=== PATIENT | male | born 1945 | race Caucasian/White ===

== ENCOUNTER 2017-05-08 10:13 | Emergency (ER) | payer MEDICARE | END 2017-05-08 12:08 | disposition home or self-care (01) | LOC: D.ER 10:13 | DX: S43.401A Unspecified sprain of right shoulder joint, initial encounter (principal); W07.XXXA Fall from chair, initial encounter; Y93.89 Activity, other specified; Y92.019 Unspecified place in single-family (private) house as the place of occurrence of the external cause; E11.9 Type 2 diabetes mellitus without complications; I10 Essential (primary) hypertension; K21.9 Gastro-esophageal reflux disease without esophagitis; M54.2 Cervicalgia ==

== ENCOUNTER → 2017-05-24 08:17 | Outpatient (CLI) | payer MEDICARE | END | disposition home or self-care (01) | LOC: D.MRI 08:17 | DX: S42.031A Displaced fracture of lateral end of right clavicle, initial encounter for closed fracture (principal); X58.XXXA Exposure to other specified factors, initial encounter; Y93.89 Activity, other specified; Y92.89 Other specified places as the place of occurrence of the external cause ==

== ENCOUNTER 2017-09-14 06:29 | Day surgery (SDC) | payer MEDICARE ==
[~2017-09-14] VITALS: Ht 185.4 cm; Wt 90.7 kg
--- NOTE | ~2017-09-14 | OP ---
PATIENT NAME: INEZ MARTINEZ MEDICAL RECORD: [id number] :49 LOCATION:D.OPS ADMISSION DATE: SURGEON: NADIR HUTCHISON MD DATE OF OPERATION: 09/14/2017 PREOPERATIVE DIAGNOSES: 1. Left back sebaceous cyst. 2. Tobacco dependence syndrome. 3. Hypertension. 4. Diabetes mellitus. 5. Hypercholesterolemia. POSTOPERATIVE DIAGNOSES: 1. Left back sebaceous cyst. 2. Tobacco dependence syndrome. 3. Hypertension. 4. Diabetes mellitus. 5. Hypercholesterolemia. PROCEDURE: Excision of 8 cm left back sebaceous cyst. SURGEON: Nadir Hutchison MD REPORT OF PROCEDURE: The patient's back was prepped and draped in sterile fashion. An oblique incision was made overlying an enlarged sebaceous cyst. The incision itself was approximately 5 cm in length. Using electrocautery, we were able to come around the cyst. We eventually were able to completely excise the cyst including its contents. The cyst pocket was penetrated multiple times during this case and the contents were removed. We irrigated out the wound thoroughly with normal saline and treated any bleeding sources with electrocautery. The subcutaneous tissues were reapproximated with interrupted 3-0 Vicryl and the skin was closed with running subcutaneous 5-0 Monocryl. A total of 10 mL of 0.25% Marcaine with epinephrine was infused into the surrounding tissues and the wounds were dressed appropriately. COMPLICATIONS: None. CONDITION: Stable. ANESTHESIA: General endotracheal and local. BLOOD LOSS: Minimal. TRANSINT:[id number] Voice Confirmation ID: [id number] DOCUMENT ID: [id number] NADIR HUTCHISON MD at 1031 CC: JORGE FUENTES MD [id number] DICTATION DATE: 09/14/17 1033 DEVELOPMENT TECHNICIAN: 09/14/17 1440 [facility] 09/14/17 [place] [id number]
[~2017-09-14 06:29] MED LIST: BACLOFEN20 M1 PO; FLOMAX0.4 MG PO; GLUCOPHAGE500 MG PO; MORPHINE SULFAT30 MG PO; MORPHINE SULFAT90 MG PO; NEURONTIN600 MG PO; UROCIT-K10 MEQ PO; ZEGERID 20 MG C1 CAP PO
[2017-09-14 07:04] LABS: BASOPHILS 0.2 % (0-2); EOSINOPHILS 1.3 % (0-7); HEMATOCRIT 41.2 % (42.0-54.0); HEMOGLOBIN 13.8 g/dL (13.5-17.5); IMMATURE GRANULOCYTES 0.1 % (0-5); LYMPHOCYTES 34.1 % (15-50); MCH 31.9 pg (26.0-34.0); MCHC 33.5 g/dL (31.0-37.0); MCV 95.4 fL (80.0-100.0); MEAN PLATELET VOLUME 9.3 fL (7.4-10.4); MONOCYTES 5.6 % (2-11); NEUTROPHILS 58.7 % (40-80); PLATELET COUNT 200 10x3/uL (130-400); RBC 4.32 10x6/uL (4.20-6.10); WBC 8.4 10x3/uL (4.8-10.8)
[2017-09-14 07:23] LABS: CALC OSMOLALITY 284 mosm/kg (275-300); CALCIUM 9.1 mg/dL (8.5-10.1); CHLORIDE - SERUM 102 mmol/L (98-107); CREATININE - SERUM 0.9 mg/dL (0.6-1.3); POTASSIUM - SERUM 4.2 mmol/L (3.5-5.1); SODIUM 139 mmol/L (136-145); UREA NITROGEN 17 mg/dL (7-18); eGFR NON AFRICAN AMERICAN 89 mL/min (90-120)
[2017-09-14 07:28] LABS: GLUCOSE 187 mg/dL (74-106)
[2017-09-14 07:43] VITALS: BP 123/83; Ht 185.4 cm; Wt 90.7 kg
[2017-09-14] MEDS ORDERED: HYDROCODONE-APA1 TAB PO (10:28)
== END 2017-09-14 12:00 | disposition home or self-care (01) ==
LOC: D.OPS 06:29 → D.PAN 10:15 → D.OPS 10:15
PROVIDERS: Surgery
DX: L72.0 Epidermal cyst (principal); F17.200 Nicotine dependence, unspecified, uncomplicated; I10 Essential (primary) hypertension; E11.9 Type 2 diabetes mellitus without complications; E78.00 Pure hypercholesterolemia, unspecified; Z01.812 Encounter for preprocedural laboratory examination

== ENCOUNTER 2019-08-29 15:20 | Emergency (ER) | payer MEDICARE ==
[~2019-08-29] VITALS: Ht 185.4 cm; Wt 77.3 kg
[~2019-08-29 15:20] MED LIST changes: +HYDROCODONE-APA1 TAB PO
[2019-08-29 15:24] VITALS: Ht 185.4 cm; Wt 77.3 kg
[2019-08-29 16:30] LABS: BASOPHILS 0 % (0-2); HEMATOCRIT 40.6 % (42.0-54.0); HEMOGLOBIN 13.2 g/dL (13.5-17.5); IMMATURE GRANULOCYTES 0.1 % (0-5); LYMPHOCYTES 27.6 % (15-50); MCH 31.7 pg (26.0-34.0); MCHC 32.5 g/dL (31.0-37.0); MCV 97.4 fL (80.0-100.0); MEAN PLATELET VOLUME 9.6 fL (7.4-10.4); MONOCYTES 6.8 % (2-11); NEUTROPHILS 64.5 % (40-80); PLATELET COUNT 208 10x3/uL (130-400); RBC 4.17 10x6/uL (4.20-6.10); RDW 14.2 % (11.5-14.5)
[2019-08-29 16:43] LABS: CALC OSMOLALITY 282 mosm/kg (275-300); CALCIUM 9.3 mg/dL (8.5-10.1); CARBON DIOXIDE 31.1 mmol/L (21.0-32.0); CHLORIDE - SERUM 100 mmol/L (98-107); SODIUM 139 mmol/L (136-145); UREA NITROGEN 21 mg/dL (7-18); eGFR NON AFRICAN AMERICAN 78 mL/min (90-120)
[2019-08-29 16:46] LABS: GLUCOSE 126 mg/dL (74-106)
[2019-08-29 16:49] LABS: ALBUMIN 3.9 g/dL (3.4-5.0); ALKALINE PHOSPHATASE 138 U/L (30-120); ALT (SGPT) 18 U/L (10-68); BILIRUBIN - TOTAL 0.55 mg/dL (0.2-1.3); PROTEIN - SERUM 7.3 g/dL (6.4-8.2)
[2019-08-29 17:30] LABS: BILIRUBIN NEGATIVE (NEGATIVE); GLUCOSE NEGATIVE (NEGATIVE); KETONE NEGATIVE (NEGATIVE); NITRITE NEGATIVE (NEGATIVE); UROBILINOGEN NORMAL (NORMAL)
[2019-08-29 18:46] VITALS: BP 153/72
== END 2019-08-29 18:47 | disposition home or self-care (01) ==
LOC: D.ER 15:20
PROVIDERS: Emergency Medicine
DX: R51 Headache (principal); M25.571 Pain in right ankle and joints of right foot; W19.XXXA Unspecified fall, initial encounter; Y93.9 Activity, unspecified; Y92.9 Unspecified place or not applicable; R42 Dizziness and giddiness; E11.9 Type 2 diabetes mellitus without complications; Z79.84 Long term (current) use of oral hypoglycemic drugs

== ENCOUNTER 2020-02-14 14:22 | Inpatient (IN) | payer MEDICARE ==
[~2020-02-14] VITALS: Ht 185.4 cm; Wt 73.0 kg
--- NOTE | ~2020-02-14 | HEMODYNAMI ---
PATIENT:INEZ MARTINEZ MEDICAL RECORD: [id number] : 49 LOCATION:[place] [address] ADMISSION DATE: 02/14/20 Generatedon:02/17/202014:00 Patient name: INEZ MARTINEZ Patient #: [id number] SSN: : 1945 Date of study: 02/17/2020 Page: Of Hemodynamic Procedure Report Patient Data Patient Demographics Procedure consent was obtained First Name: INEZ Gender: Male Last Name: MICHELLE : 1945 Middle Initial: R Age: 74 year(s) Patient #: [id number] Race: Additional ID: [id number] Contact details Address: [address] [place] [address] State: [place] City: [place] Zip code: [address] Past Medical History Allergies Allergen Reaction Date Comments Reported Other allergy 02/17/2020 PCN/ASPIRIN Admission Admission Data Admission Date: 02/14/2020 Admission Time: 18:14 Room #: [facility] Lab Results Lab Result Date: 02/17/2020 Lab Result Time: 0:00 CBC Name Units Result Min Max Hematocrit % 37.5 *-(----)-- 42 54 Hemoglobin g/dl 11.8 *-(----)-- 13.5 17.5 Procedure Procedure Types Cath Procedure Diagnostic Procedure PPM/ICD PPM Dual Implant Sedation Charges Moderate Sedation 25-39 minutes Procedure Description Procedure Date Procedure Date: 02/17/2020 Procedure Start Time: 13:21 Procedure End Time: 13:58 Procedure Staff Name Function Erik Mckay MD Performing Physician Natalie Ruelas RT Monitor Aroldo Spears RN Nurse Zee Davison RT Scrub Paul Graham MD Assisting physician Indication Sick Sinus Syndrome Procedure Data Cath Procedure Fluoroscopy Diagnostic fluoroscopy Total fluoroscopy Time: 2 time: 2 min min Diagnostic fluoroscopy Total fluoroscopy dose: dose: 43.77 mGy 43.77 mGy Estimated blood loss: 10 ml Procedure Complications No complications Procedure Medications Medication Administration Route Dosage 0.9% NaCl I.V. 100 ml/hr Oxygen etCO2 Nasal cannula 2 l/min Lidocaine 1% added to field 20 Vancomycin I.V.P.B 1 g Vancomycin 1 g Irrigation Versed I.V. 2 mg Fentanyl I.V. 100 mcg Versed I.V. 1 mg Fentanyl I.V. 50 mcg Hemodynamics Rest HGB: 11.8 (g/dl) Heart Rate: 63 (bpm) Snapshots Pre Cath Intra NCS Post Cath Vital Signs Time Heart Resp SPO2 NIBP (mmHg) Rhythm Pain Sedation Rate (ipm) (%) Status Level (bpm) 13:04:46 64 16 100 202/86(159) NSR 0 (11) 10(A) , No pain 13:09:14 63 15 99 198/89(116) NSR 0 (11) 10(A) , No pain 13:13:48 63 16 99 184/71(92) NSR 0 (11) 10(A) , No pain 13:18:12 61 17 100 164/77(125) NSR 0 (11) 10(A) , No pain 13:22:30 72 19 100 163/77(124) NSR 0 (11) 10(A) , No pain 13:26:48 59 12 99 171/77(133) NSR 0 (11) 9(A) , No pain 13:31:13 57 12 96 159/69(127) NSR 0 (11) 9(A) , No pain 13:35:31 56 14 98 158/71(138) NSR 0 (11) 9(A) , No pain 13:39:47 56 14 99 152/77(129) NSR 0 (11) 9(A) , No pain 13:44:03 56 11 99 158/73(123) NSR 0 (11) 9(A) , No pain 13:48:19 59 10 98 167/80(137) Paced 0 (11) 9(A) , No pain 13:52:37 60 16 100 165/82(128) Paced 0 (11) 9(A) , No pain 13:56:55 59 7 99 178/82(136) Paced 0 (11) 9(A) , No pain Medications Time Medication Route Dose Verified Delivered Reason Notes Effectiv eness by by 13:12:13 0.9% NaCl I.V. 100 Aroldo Aroldo Per ml/hr Tory Spears physician RN RN 13:12:24 Oxygen etCO2 2 Aroldo Aroldo for low 02 Nasal l/min Lorigan Lorigan sats cannula RN RN 13:12:42 Lidocaine added 20ml Aroldo Aroldo for local 1% to vial Lorigan Lorigan anesthetic field x2 RN RN 13:12:55 Vancomycin I.V.P.B 1 g Aroldo Aroldo Per Lorigan Anastasiaigan physician RN RN 13:13:43 Vancomycin Topical 1 g Aroldo Aroldo used for Irrigation added Lorigan Lorigan procedure to the RN wind field service manager 13:18:01 Versed I.V. 2 mg Aroldo Aroldo for Lorigan Lorigan sedation RN RN 13:18:10 Fentanyl I.V. 100 Aroldo Aroldo for mcg Lorigan Lorigan sedation RN RN 13:20:55 Versed I.V. 1 mg Aroldo Aroldo for Lorigan Lorigan sedation RN RN 13:23:22 Fentanyl I.V. 50 Aroldo Aroldo for mcg Lorigan Lorigan sedation RN insurance account representative Log Time Note 12:31:43 Informed consent obtained and on chart 12:32:06 Procedure Status PPM/ Gen Change/ Lead Revision/ Temp. 12:32:12 Time tracking: Regular hours (M-F 7:00 - 5:00) 12:34:55 Patient allergic to Other allergyPCN/ASPIRIN 12:35:56 Medtronic cash applications representative HARSH HAMILTON present for procedure. 12:37:17 Indication : Sick Sinus Syndrome 12:37:36 Natalie Ruelas RT(R) (CV) sent for patient. Start room use. 13:02:09 Plan of Care:Hemodynamics will remain stable., Cardiac rhythm will remain stable., Comfort level will be maintained., Respiratory function will remain adequate., Patient/ family verbilizes understanding of procedure., Procedure tolerated without complication., Recovers from procedure without complications.. 13:02:19 Patient received from Med II to CCL 3 Alert and oriented. Tansferred to table in Supine position. 13:02:26 Warm blankets applied, and caesar hugger turned on for patient comfort. 13:02:27 Correct patient and procedure confirmed by team. 13:02:28 ECG and BP/O2 sat monitors applied to patient. 13:02:29 Vital chart was started 13:02:32 Baseline sample Acquired. 13:02:51 Rhythm: sinus rhythm 13:02:54 Full Disclosure recording started 13:02:55 - 13:03:02 H&P Date Dictated: 02/17/2020 Within 30 days and on chart., ER History on chart.. 13:03:05 Pre-procedure instructions explained to patient. 13:03:05 Pre-op teaching completed and patient verbalized understanding. 13:03:11 Family in patients room. 13:03:14 Patient NPO since Midnight. 13:03:21 Is patient on blood thinner?No 13:03:24 Patient diabetic? Yes. 13:03:28 If diabetic: On Metformin? Yes 13:03:35 If on Metformin: Last Dose? 02/15/2020 13:03:38 ----Pre-sedation anethsthesia assessment.---- 13:03:42 Previous problem with sedation/anesthesia? No ? 13:03:48 Snore? Yes 13:03:50 Sleep apnea? No 13:03:53 Deviated septum? Unknown 13:03:57 Opens mouth fully? Yes 13:04:02 Sticks out tongue? Yes 13:04:06 Airway obstruction? No ? 13:04:12 Dentures? No ? 13:04:27 IV patent on arrival in right antecubital with 0.9% NaCl at O. 13:04:42 Left chest area was prepped with chlora-prep and draped in sterile fashion 13:04:44 Alarms reviewed by R. N. 13:04:45 Sharps counted by scrub and verified by R.N. 13:04:52 Use device set FOSTER PPM 13:04:55 2-0 Ticron Multipack ([id number]) opened to sterile field. 13:04:56 3-0 Vicryl Single Pack [id number] opened to sterile field. 13:04:57 5-0 Monocryl PS2 [id number] opened to sterile field. 13:04:58 Cautery Tip Porcelain Enamel Repairer opened to sterile field. 13:04:59 Cautery Pushbutton Pencil opened to sterile field. 13:05:00 Mepilex Dressing ([id number]) opened to sterile field. 13:05:02 Immobilizer Large opened to sterile field. 13:10:57 Pre sharps counted by scrub and verified by RN: Sutures: 7; Sponges: 5; Stick needles: 2; Skin needles: 2; Blade:1; Cautery: 1 13:11:32 Grounding pad site Left thigh. 13:11:34 Grounding pad site free from injury. 13:12:13 0.9% NaCl 100 ml/hr I.V. was administered by Aroldo Spears RN; Per physician; Verbal order read back and verified. 13:12:24 Oxygen 2 l/min etCO2 Nasal cannula was administered by Aroldo Spears RN; for low 02 sats; Verbal order read back and verified. 13:12:42 Lidocaine 1% 20ml vial x2 added to field was administered by Aroldo Spears RN; for local anesthetic; Verbal order read back and verified. 13:12:55 Vancomycin 1 g I.V.P.B was administered by Aroldo Spears RN; Per physician; Verbal order read back and verified. 13:13:43 Vancomycin Irrigation 1 g Topical added to the field was administered b dalia Spears RN; used for procedure; Verbal order read back and verified. 13:16:45 Physician arrived 13:16:46 --------ALL STOP TIME OUT------ 13:16:47 Final Timeout: patient, procedure, and site verified with staff and physician. All members of the team are in agreement. 13:16:58 Left chest site verified by team. 13:17:10 Fire Safety Assessment: A--An alcohol-based skin anteseptic being used preoperatively., B--The operative or invasive procedure is being performed above the xiphoid process or in the oropharynx., C--Open oxygen or nitrous oxide is being used., E--There are other possible contributors. 13:17:18 Physical assessment completed. ASA score P 2 - A patient with mild systemic disease as per Erik Mckay MD. 13:17:25 Sedation plan: IV Moderate Sedation Medication:Versed, Fentanyl 13:18:01 Versed 2 mg I.V. was administered by Aroldo Spears RN; for sedation; Verbal order read back and verified. 13:18:10 Fentanyl 100 mcg I.V. was administered by Aroldo Spears RN; for sedation; Verbal order read back and verified. 13:20:48 Lab Result : Hemoglobin 11.8 g/dl :20:48 Lab Result : Hematocrit 37.5 % 13:20:55 Versed 1 mg I.V. was administered by Aroldo Spears RN; for sedation; Verbal order read back and verified. 13:21:00 Procedure started. 13:21:26 Lidocaine 1% was administered to left subclavicular area by Paul Graham MD . 13:22:14 Medtronic 4074-52 PPM Lead opened to sterile field. 13:22:15 Medtronic 4574-45 PPM Lead opened to sterile field. 13:22:23 Incision made to left subclavicular area. 13:23:22 Fentanyl 50 mcg I.V. was administered by Aroldo Spears RN; for sedation; Verbal order read back and verified. 13:24:[address] Generator [id number] opened to sterile field. 13:27:36 Generator pocket made/opened. 13:27:41 Left subclavian vein accessed with 7Fr Peel Away Sheath. 13:27:46 Left subclavian vein accessed with 7Fr Peel Away Sheath. 13:28:16 Ventricular lead inserted and advanced. 13:28:21 Atrial lead inserted and advanced. 13:38:41 Ventricular lead positioned. 13:38:48 Atrial lead positioned. 13:42:57 Ventricular lead tested. 13:43:02 Atrial lead tested. 13:43:18 Peel-a-way sheath was split and removed. 13:43:20 Peel-a-way sheath was split and removed. 13:43:42 PPM Dual was attached to lead(s) and inserted into pocket. 13:44:16 PPM Dual was inserted subcutaneously to left chest. 13:45:51 Atrial lead attachment was completed with 2-0 ticron. 13:45:59 Ventricular lead attachment was completed with 2-0 ticron. 13:46:16 Generator was sutured in place with 2-0 ticron. 13:47:23 Device pocket was irrigated with Ancef. 13:47:37 Subcutaneous closure was completed with 3-0 vicryl plus. 13:51:48 Skin closure was completed with 5-0 monocryl. 13:52:15 Parameters-- Generator: Mode: DDDR. Lower Rate: 60bpm. Upper Rate: 120bpm. 13:53:21 Parameters--Ventricular P/R Wave: 11.8mV. Current: 0.4mA; Threshold: 0.7V; Impedence: 1441OHMS. 13:54:12 Parameters--Atrial P/R Wave: 4.9mV. Current: 0.6mA; Threshold: 0.3V; Impedence: 552OHMS. 13:54:57 Lt Chest incision was dressed with Mepilex dressing. 13:55:03 Procedure ended.(Physican Out) 13:55:25 Fluoroscopy time 02.00 minutes. 13:55:34 Fluoroscopy dose: 43.77 mGy 13:55:34 Flurop Dose total: 43.77 13:55:43 Dose Area Product 568.82 mGy/cm. 13:56:13 Post sharps counted by scrub and verified by RN: Sutures: 7; Sponges: 5 ; Stick needles: 2; Skin needles: 2; Blade: 1; Cautery: 1 13:56:38 Sharps counted by scrub and verified by R.N. 13:56:50 Post-procedure physical assessment completed. ASA score P 2 - A patient with mild systemic disease as per Erik Mckay MD. 13:56:55 Post procedure rhythm: paced 13:57:00 Estimated blood loss: 10 ml 13:57:02 Post procedure instruction explained to patient.Patient verbalizes understanding. 13:57:03 Patient needs reinforcement of post procedure teaching. 13:58:14 Procedure type changed to Cath procedure, Diagnostic procedure, PPM/ICD , PPM Dual Implant, Sedation Charges, Moderate Sedation 25-39 minutes 13:58:17 Procedure and supply charges have been captured, reviewed, submitted an d are correct. 13:58:25 Procedure Complication : No complications 13:58:30 Vital chart was stopped 13:58:36 Operative report dictated upon procedure completion. 13:58:37 See physician's report for complete and final results. 13:58:41 Report given to [facility]. 13:58:46 Patient transfered to [facility] with Bed. 13:58:50 Procedure ended. 13:58:50 Full Disclosure recording stopped 13:58:55 End room use (Document Last) Device Usage Item Name Manufacture Quantity Catalog Hospital Part Current Minima l Lot# / Number Charge Number Stock Stock Serial# Code 2-0 Ticron Ethicon 5 [id number] [id number] 08097 328328 5 Multipack ([id number]) 3-0 Vicryl Ethicon 1 [id number] 914549 141507 686955 5 Single Pack [id number] 5-0 Monocryl Ethicon 1 [id number] 953059 800775 155507 5 PS2 Y495G Cautery Tip Microtek 1 [id number] 001941 060671 392051 5 Porcelain Enamel Repairer [employer] Cautery Microtek 1 [id number] 692596 62836 707814 5 Pushbutton Medical Inc[employer] Pencil Mepilex Cardinal 1 [id number] 169916 726265 456818 5 [facility] ([id number]) Immobilizer Cardinal 1 [id number] 075537 947379 723577 5 Large Health Medtronic Medtronic 1 4074-52 368140 823100 411956 5 4074-52 PPM [id number] Lead 12-0 Medtronic Medtronic 1 4574-45 359879 960843 347848 5 4574-45 PPM [id number] Lead 07-2 -2021 Medtronic Medtronic 1 [id number] 299755 1673552 119952 5 RENÉ XT [id number] Generator 01-1 [id number] Signature Audit [place] Stage Time Signature Unsigned Intra-Procedure 02/17/2020 Natalie 1:59:14 PM Jessenia RT(R) (CV) Intra-Procedure 02/17/2020 Erik Simeon 2:00:45 PM [facility] [address] [place] [id number]
--- NOTE | ~2020-02-14 | OP ---
PATIENT NAME: INEZ MARTINEZ MEDICAL RECORD: [id number] :49 LOCATION:D. D.0 ADMISSION DATE:02/14/20 SURGEON: NADIR HUTCHISON MD DATE OF OPERATION: 02/17/2020 PREOPERATIVE DIAGNOSIS: Sick sinus syndrome with pauses. POSTOPERATIVE DIAGNOSIS: Sick sinus syndrome with pauses. PROCEDURE: 1. Left subclavian vein dual lead pacemaker placement. 2. Fluoroscopic interpretation. SURGEON: Nadir Hutchison MD CO-SURGEON: Erik Contreras MD REPORT OF OPERATION: The patient's left chest was prepped and draped in sterile fashion. A 20 mL of 1% lidocaine with epinephrine was infused into the surrounding tissues. A transverse incision was made on the left superior lateral chest and a subcutaneous pouch was made over the pectoral fascia. Hunter were used to cannulate the left subclavian vein. The guidewires were advanced x2. Fluoro was used to note that the wires were in good position in the venous system. The dilator trocar devices were placed over the wires and the wires and dilators were removed. The leads were advanced through the trocars until it rested in the superior vena cava. At this point, Dr. Contreras positioned the leads appropriately in the atrium and ventricle. Once they were noted to be in good position and functioning appropriately, then they were sutured into place with 2-0 TiCron. The leads were affixed to the pacemaker, which was placed into the subcutaneous pouch. This was sutured into place with a 2-0 TiCron. We irrigated out the wound bed with antibiotic solution. The subcutaneous tissues were reapproximated with interrupted 3-0 Vicryl and the skin was closed with running subcutaneous 5-0 Monocryl. COMPLICATIONS: None. CONDITION: Stable. ANESTHESIA: Local MAC. BLOOD LOSS: Minimal. TRANSINT:[id number] Voice Confirmation ID: [id number] DOCUMENT ID: [id number] NADIR HUTCHISON MD CC: [id number] DICTATION DATE: 02/17/20 1446 POT RELINER: 02/18/20 0113 DIS IN 02/17/20 [facility] [address] [place] [id number]
--- NOTE | ~2020-02-14 | OP ---
PATIENT NAME: INEZ MARTINEZ MEDICAL RECORD: [id number] :49 LOCATION:D.M2 D.0 ADMISSION DATE:02/14/20 SURGEON: MAY SÁNCHEZ MD DATE OF OPERATION: 02/17/2020 PROCEDURE: Lead portion of permanent pacemaker placement. DESCRIPTION OF PROCEDURE: After the left subclavian vein was cannulated via modified Seldinger technique via Dr. Graham, first under fluoroscopic guidance, I placed the right ventricular lead and right ventricular apex without difficulty. After adequate R waves and thresholds were obtained, again under fluoroscopic guidance, I placed the right atrial leads and right atrial appendage without difficulty. After adequate P waves and thresholds were obtained, the leads were attached to appropriate poles on the generator and the pocket was closed via Dr. Graham. IMPRESSION: Successful lead portion permanent pacemaker placement on Inez Martinez. ESTIMATED BLOOD LOSS: Minimal. COMPLICATIONS: None. DISPOSITION: To the floor stable. TRANSINT:[id number] Voice Confirmation ID: [id number] DOCUMENT ID: [id number] MAY SÁCNHEZ MD CC: [id number] DICTATION DATE: 02/17/20 1419 HEAD CAGER: 02/18/20 0046 DIS IN 02/17/20 [facility] [address] [place] [id number]
[2020-02-14 16:03] LABS: APTT 34.9 SECONDS (22.8-39.4); INR 0.99 (0.85-1.17); PROTIME 13.1 SECONDS (11.6-15.0)
[2020-02-14 16:09] LABS: BASOPHILS 0.1 % (0-2); EOSINOPHILS 2.7 % (0-7); HEMATOCRIT 38.8 % (42.0-54.0); HEMOGLOBIN 12.4 g/dL (13.5-17.5); IMMATURE GRANULOCYTES 0.2 % (0-5); LYMPHOCYTES 40.7 % (15-50); MCH 31.7 pg (26.0-34.0); MCV 99.2 fL (80.0-100.0); MEAN PLATELET VOLUME 9.8 fL (7.4-10.4); MONOCYTES 4.9 % (2-11); NEUTROPHILS 51.4 % (40-80); PLATELET COUNT 198 10x3/uL (130-400); RBC 3.91 10x6/uL (4.20-6.10); RDW 14.8 % (11.5-14.5); WBC 8.2 10x3/uL (4.8-10.8)
[2020-02-14 16:31] LABS: CALC OSMOLALITY 296 mosm/kg (275-300); CALCIUM 8.6 mg/dL (8.5-10.1); CARBON DIOXIDE 28.3 mmol/L (21.0-32.0); CHLORIDE - SERUM 110 mmol/L (98-107); CREATININE - SERUM 0.7 mg/dL (0.6-1.3); GLUCOSE 100 mg/dL (74-106); POTASSIUM - SERUM 4.2 mmol/L (3.5-5.1); SODIUM 147 mmol/L (136-145); UREA NITROGEN 26 mg/dL (7-18); eGFR NON AFRICAN AMERICAN > 90 mL/min (90-120)
[2020-02-14 16:43] LABS: ALBUMIN 3.4 g/dL (3.4-5.0); ALKALINE PHOSPHATASE 100 U/L (30-120); BILIRUBIN - TOTAL 0.13 mg/dL (0.2-1.3); CKMB 1.3 U/L (0.0-3.6); CREATINE KINASE 65 UL (21-232); MAGNESIUM - SERUM 2.2 mg/dL (1.8-2.4); PROTEIN - SERUM 6.1 g/dL (6.4-8.2)
[2020-02-14 16:44] LABS: ALT (SGPT) 5 U/L (10-68); TROPONIN-I < 0.017 ng/mL (0.000-0.060)
[2020-02-14] MEDS ORDERED: MORPHINE IMMEDI30 M1 PO (18:48)
[2020-02-14] MEDS ORDERED: MS CONTIN100 MG PO (18:48)
[2020-02-14 19:00] VITALS: BP 105/61
[2020-02-14] MEDS ORDERED: LIPITOR40 MG PO (22:50)
[2020-02-14 23:17] LABS: CKMB 1.3 U/L (0.0-3.6); CREATINE KINASE 54 UL (21-232)
[2020-02-14 23:20] LABS: TROPONIN-I < 0.017 ng/mL (0.000-0.060)
[2020-02-15] VITALS (8 sets, daily range): BP systolic 118–176; BP diastolic 32–120; BMI 21.2
--- NOTE | 2020-02-15 01:31 | NUR ---
PT UP TO BATHROOM AT THIS TIME.
[2020-02-15 05:07] LABS: BASOPHILS 0.1 % (0-2); EOSINOPHILS 2.1 % (0-7); HEMATOCRIT 37.5 % (42.0-54.0); HEMOGLOBIN 11.8 g/dL (13.5-17.5); IMMATURE GRANULOCYTES 0.1 % (0-5); LYMPHOCYTES 27.2 % (15-50); MCH 31.6 pg (26.0-34.0); MCHC 31.5 g/dL (31.0-37.0); MCV 100.3 fL (80.0-100.0); MEAN PLATELET VOLUME 10.1 fL (7.4-10.4); MONOCYTES 4.5 % (2-11); PLATELET COUNT 182 10x3/uL (130-400); RBC 3.74 10x6/uL (4.20-6.10); RDW 14.6 % (11.5-14.5); WBC 8.7 10x3/uL (4.8-10.8)
[2020-02-15 05:32] LABS: CALC OSMOLALITY 296 mosm/kg (275-300); CALCIUM 8.4 mg/dL (8.5-10.1); CHLORIDE - SERUM 109 mmol/L (98-107); CKMB 1.6 U/L (0.0-3.6); CREATINE KINASE 57 UL (21-232); CREATININE - SERUM 0.6 mg/dL (0.6-1.3); GLUCOSE 113 mg/dL (74-106); SODIUM 147 mmol/L (136-145); UREA NITROGEN 23 mg/dL (7-18); eGFR NON AFRICAN AMERICAN > 90 mL/min (90-120)
[2020-02-15 05:35] LABS: POTASSIUM - SERUM 3.5 mmol/L (3.5-5.1); TROPONIN-I < 0.017 ng/mL (0.000-0.060)
[2020-02-15 10:25] LABS: CKMB 1.6 U/L (0.0-3.6); CREATINE KINASE 62 UL (21-232); TROPONIN-I < 0.017 ng/mL (0.000-0.060)
--- NOTE | 2020-02-15 16:43 | NUR ---
CALLED [phone] TO GET REPORT, NO ONE BUSINESS LIAISON MANAGER THE PHONE.
--- NOTE | 2020-02-15 17:08 | NUR ---
CALLED ER TO GET REPORT, DID NOT GET ANYONE TO ANSWER PHONE.
--- NOTE | 2020-02-15 17:53 | NUR ---
RECEIVED PT TO ROOM 2119 VIA WHEELCHAIR, PT ABLE TO TRANSFER FROM WHEELCHAIR TO BED WITH MINIMAL ASSIST. ORIENTED PT TO ROOM AND CALL LIGHT, PT DROWSY BUT ABLE TO ANSWER QUESTIONS. RT FA IV INFUSING NS AT 75CC/HR. WILL ASSESS PT AND START PLAN OF CARE.
--- NOTE | 2020-02-15 22:12 | NUR ---
INITIAL ROUNDS COMPLETED AT 1914 HRS. PT RESTING WITH EYES CLOSED. RESP EVEN AND REGULAR. ASSESSMENT COMPLETED AT 1999 HRS. PT YELLING, DEMANDING HIS PAIN MEDS JASMINE. PT ALSO STATED HE HAS NOT RECEVED THEM ALL DAY. INFOMRED PT HE RECEIVED HIS MEDS AND NEXT DOSE DUE AT 2100. PT VERY UPSE THAT HE NEEDED TO WAIT. ASSITED TO BR. VOIDED MODERATE AMOUNT OF URINE. PT UNSTEADY ON FEET. NIMISHA MAT PLACED ON BED WHOE PT IN BR. ASSITED PT BACK TO BED. CM DENOTES SR WITH BBB HR 65. ALERT AND ORIENTED TO PERSON,PLACE AND SITUATION. REORIENTED TO DOWN. IV TO RFA WITH NS AT 75C/HR. IV PATENT. BRUISES NOTED TO BILAT ARMS. LEG. STEWART. PALPABLE PERIPHERAL PULSES. PMMEDS GIVEN AT 2034 HRS. PT CURRENTLY WATCHIHG TV, ASKING FOR MORE PAIN MEDS. INFRMED PT HE RECEIVED HIS PAIN MEDS AT 2034 HRS. PT INSISTING THEY WER GIVEN ON DAY SHIFT. SR UP X2,CALL LIGHT WITHIN REACH AND BED ALARM ON, DOOR OPEN.
[2020-02-16] VITALS: BP 173/87
--- NOTE | 2020-02-16 00:12 | NUR ---
PT RESTING WITH EYES CLOSED. RESP EVEN AND REGULAR. SR UP X2, CALL LIGHT WITHIN REACH AND BED ALARM ON.
--- NOTE | 2020-02-16 01:54 | NUR ---
PT RESTING WITH EYES CLOSED. RESP EVEN EVEN AND REGULAR. SR UP X2, CALL LIGHT WITHIN REACH AND BED ALARM ON.
[2020-02-16 04:00] VITALS: BP 140/82
--- NOTE | 2020-02-16 04:08 | NUR ---
PT RESTING WITH EYES CLOSED. RESP EVEN AND REGULAR. SR UP X2, CALL LIGHT WITHIN REACH AND BED ALARM ON.
--- NOTE | 2020-02-16 04:42 | NUR ---
MORPHINE IR 30MG PO GIVEN FOR C/O CHRONIC PAIN 02/06. WILL CONTINUE TO MONITOR.
--- NOTE | 2020-02-16 06:30 | NUR ---
PT RESTED WELL DURING SHIFT. REQUESTED PAIN MEDS X3 DURNG SHIFT. PT WILL NOT CALL FOR ASSISTANCE TO BR. UNSTEADY GAIT. SR UP X2, CALL LIGHT WITHIN REACH, BED ALARM ON AND DOOR OPEN.
--- NOTE | 2020-02-16 07:15 | NUR ---
RECEIVE SHIFT REPORT. RESTING IN BED WITH EYES CLOSED. NO SIGNS OF DISTRESS. WILL CONTINUE PLAN OF CARE AND SAFETY PRECAUTIONS. BED ALARM ON.
--- NOTE | 2020-02-16 08:38 | HP ---
PATIENT: INEZ MARTINEZ MEDICAL RECORD: [id number] ACCOUNT: [id number] LOCATION:[address] : [birth year] ADMISSION DATE: 02/14/20 PCP: JORGE FUENTES MD HISTORY AND PHYSICAL EXAMINATION DATE OF ADMISSION: 02/14/2020. CHIEF COMPLAINT: Syncopal episodes. HISTORY OF PRESENT ILLNESS: This is a 74-year-old male who was admitted to [facility] last month with syncopal episodes. It is documented that he had a Mobitz type 2 arrhythmia. His heart rate would go down into the 40s, sometimes and his troponin actually had been elevated but he wanted to go home and did not want to get anything done there. His echocardiogram at [place] showed a normal left ventricular systolic function at 60%. Right ventricle with all the chambers were normal sized and no significant valvular problems. I saw him in followup in my office and referred him to Dr. Cook who saw him about a week ago and he is actually scheduled to have pacemaker placed on 02/17/2020. He states since he saw Dr. Cook that he has had worse syncopal episodes and now having dizziness and lightheadedness, so he presented to the Emergency Department. PAST MEDICAL HISTORY: Hypertension, he has chronic pain syndrome, diabetes, hyperlipidemia, and osteoarthritis. PAST SURGICAL HISTORY: He has had 7 surgeries on his left wrist and forearm. He has had cervical spine surgery and lumbar spine surgeries. ALLERGIES: ASPIRIN AND PENICILLIN. HOME MEDICATIONS: Include morphine ER 100 mg twice a day, morphine IR 30 mg twice a day, baclofen 20 mg t.i.d., gabapentin 600 mg one half at noon and one in the evening, metformin 500 just once a day, tamsulosin 0.4 mg 2 a day, omeprazole 20 mg once a day, potassium 10 mEq once a day, and atorvastatin 40 mg once a day. HABITS: He is a long time smoker and continues. Denies alcohol or drugs. SOCIAL HISTORY: Retired, . FAMILY HISTORY: Father at 76. He had an [place] and COPD. Mother at 68. She had an TN. REVIEW OF SYSTEMS: GENERAL: He has slowly lost weight over the last several months or years. HEENT: No particular sinus or allergy problems. RESPIRATORY: He is a long time smoker, but does not carry a diagnosis of COPD or asthma. GASTROINTESTINAL: He has heartburn. GENITOURINARY: No significant problems there. MUSCULOSKELETAL: Chronic pain in his neck, back, and wrist. NEUROLOGIC: No migraines or seizures. PSYCHIATRIC: Denies depression or melancholia. PHYSICAL EXAMINATION: HISTORY AND PHYSICAL [id number] INEZ MARTINEZ VITAL SIGNS: He is afebrile, heart rate 64, respirations 20, blood pressure 105/61, O2 sat was 97. Generally, he appears older than his stated age. He does not appear in acute distress at this time in the Emergency Department. HEENT: Grossly within normal limits. NECK: Supple. HEART: Regular rate and rhythm, no murmur. LUNGS: Clear. ABDOMEN: Soft. BACK: Chronic pain in his neck and lower back. EXTREMITIES: No edema. He has chronic pain in the left wrist area. ASSESSMENT: 1. Mobitz type 2 AV block. 2. Syncope 3. Chronic pain. 4. Hypertension. 5. Diabetes. PLAN: He is admitted. Dr. Cook has been consulted and hopefully he will get his pacemaker and get stabilized. Other tests and procedures as warranted. TRANSINT:[id number] Voice Confirmation ID: [id number] DOCUMENT ID: [id number] JORGE FUENTES MD at 0838 CC: [id number] DICTATION DATE: 02/15/20 170 PATTERN DRAFTER: 02/15/201952 ADM IN [place] [id number] [place] [id number]
[2020-02-16 10:23] VITALS: BP 150/95
[2020-02-16 12:18] VITALS: Ht 185.4 cm; Wt 73.0 kg
[2020-02-16 14:34] VITALS: BP 123/79
[2020-02-16 16:27] LABS: BILIRUBIN NEGATIVE (NEGATIVE); KETONE NEGATIVE (NEGATIVE); NITRITE NEGATIVE (NEGATIVE); UROBILINOGEN NORMAL mg/dL (< 2)
[2020-02-16 20:00] VITALS: BP 132/75
[2020-02-17] VITALS: BP 127/80
[2020-02-17 04:00] VITALS: BP 122/90
[2020-02-17 08:08] VITALS: BP 164/91
[2020-02-17 12:17] VITALS: BP 130/81
--- NOTE | 2020-02-17 12:49 | NUR ---
LEAVING TO BRAND REPRESENTATIVE FOR PACEMAKER PLACEMENT. CONSENTS SIGNED.
[2020-02-17 15:01] LABS: HEMATOCRIT 39.7 % (42.0-54.0); HEMOGLOBIN 13.1 g/dL (13.5-17.5); MCH 31.7 pg (26.0-34.0); MEAN PLATELET VOLUME 9.4 fL (7.4-10.4); RBC 4.13 10x6/uL (4.20-6.10); RDW 13.9 % (11.5-14.5); WBC 7.4 10x3/uL (4.8-10.8)
[2020-02-17 15:13] LABS: APTT 31.9 SECONDS (22.8-39.4); INR 0.99 (0.85-1.17)
--- NOTE | 2020-02-17 15:31 | NUR ---
BACK FROM LABOR SERVICE REPRESENTATIVE. LEFT CHEST DRSG CDI. LEFT ARM IN SLING. WILL CONT. PLAN OF CARE.
[2020-02-17 15:33] LABS: MCV 96.1 fL (80.0-100.0)
[2020-02-17 16:23] LABS: CALC OSMOLALITY 282 mosm/kg (275-300); CARBON DIOXIDE 32.5 mmol/L (21.0-32.0); CHLORIDE - SERUM 104 mmol/L (98-107); CREATININE - SERUM 0.5 mg/dL (0.6-1.3); GLUCOSE 111 mg/dL (74-106); POTASSIUM - SERUM 3.8 mmol/L (3.5-5.1); SODIUM 142 mmol/L (136-145); UREA NITROGEN 11 mg/dL (7-18); eGFR NON AFRICAN AMERICAN > 90 mL/min (90-120)
[2020-02-17 16:33] VITALS: BP 102/63
--- NOTE | 2020-02-17 17:19 | MORECARE ---
CASE MANAGEMENT DISCHARGE SUMMARY PATIENT: INEZ MARTINEZ UNIT: [id number] ADM DATE: 02/14/20 AGE: 74 : [birth year] SEX: M ROOM/BED: D.2120 AUTHOR: JALEEL FUCHS PHYSICIAN: REFERRING PHYSICIAN: JORGE FUENTES MD DATE OF SERVICE: 02/17/20 Discharge Plan Patient Name: INEZ MARTINEZ Facility: [facility]:[place] : 1945 Planned Disposition: Home Anticipated Discharge Date: Discharge Date: Expected LOS: Initial Reviewer: [email or web address] Initial Review Date: 02/17/2020 Generated: 02/17/20 6:18 pm DCPIA - Discharge Planning Initial Assessment Updated by [id number]: Yelitza Camacho on 02/17/20 5:17 pm * Is the patient Alert and Oriented? Yes * How many steps to enter\exit or inside your home? 2/0 * PCP Dr. Fuentes * Pharmacy [facility] * Preadmission Environment Home with Family * ADLs Independent * Equipment None * List name and contact numbers for known caregivers / representatives who currently or will assist patient after discharge: Natasha Martinez - spouse - [phone] * Verbal permission to speak to the caregivers and representatives has been obtained from the patient. Yes * Community resources currently utilized None * Additional services required to return to the preadmission environment? No * Can the patient safely return to the preadmission environment? Yes * Has this patient been hospitalized within the prior 30 days at any hospital? Yes Coverage Notice Reviewer: [id number] - Yelitza Camacho Notice Issued Date-Time: 02/17/2020 17:14 Notice Type: IM Discharge Notice Notice Delivered To: Family Member Relationship to Patient: Spouse College Dean Name: Natasha Martinez Delivery Method: HAND - Hand Delivered Sophia Days: Prior Verbal Notification: Recipient Understood Notice: Yes Recipient Signature: Yes Med Rec Note Co-signed by Attending: Coverage Notice Comment: IMM explained, signed, given, copy placed in MR Patient Name: INEZ MARTINEZ Page [id number] at 1719 All edits/amendments must be made on the electronic document DICTATION DATE: 02/17/201717 PLC TECHNICIAN: OBI 02/17/201717 RPT#: [id number] DC DATE: STATUS: ADM IN [facility] [address] [place] [address] END OF REPORT
--- NOTE | 2020-02-17 17:27 | MORECARE ---
CASE MANAGEMENT DISCHARGE SUMMARY PATIENT: INEZ MARTINEZ UNIT: [id number] ADM DATE: 02/14/20 AGE: 74 : 47 SEX: M ROOM/BED: D.4490 AUTHOR: JEFDOC PHYSICIAN: REFERRING PHYSICIAN: JORGE FUENTES MD DATE OF SERVICE: 02/17/20 Discharge Plan Patient Name: INEZ MARTINEZ Facility: [facility]:[place] : 1945 Planned Disposition: Home Anticipated Discharge Date: Discharge Date: Expected LOS: Initial Reviewer: [email or web address] Initial Review Date: 02/17/2020 Generated: 02/17/20 6:26 pm Comments DCP- Discharge Planning Updated by [email or web address]: Yelitza Camacho on 02/17/20 4:[address] Patient Name: INEZ MARTINEZ Admission Status: ER Accout number: [id number] Admission Date: 02-14-2020 : 1945 Admission Diagnosis:SYNCOPE AND COLLAPSE Attending: JORGE FUENTES Current LOS: 3 Anticipated DC Date: Planned Disposition: Home Primary Insurance: MEDICARE A & B Discharge Planning Comments: CM met with patient to complete initial dc planning assessment. CM educated patient on the CM role and verbal consent given by patient to complete assessment. CM verified patient's address, phone number, and emergency contact phone numbers. Patient lives at with his spouse. At discharge patient plans to return and feels this is a safe discharge. CM discussed availability of home health, rehab services, and medical equipment. Patient denied known discharge needs at this time. Transportation provider at discharge will be his spouse, she is in the room. CM will continue to follow and will assist as needed with dc plans/needs. Filing Or Registry Clerk: Yelitza Camacho DCPIA - Discharge Planning Initial Assessment Updated by [id number]: Yelitza Camacho on 02/17/20 5:17 pm * Is the patient Alert and Oriented? Yes * How many steps to enter\exit or inside your home? 2/0 * PCP Dr. Fuentes * [facility]acy [facility] * Preadmission Environment Home with Family * ADLs Independent * Equipment None * List name and contact numbers for known caregivers / representatives who currently or will assist patient after discharge: Natasha Martinez - spouse - [phone] * Verbal permission to speak to the caregivers and representatives has been obtained from the patient. Yes * Community resources currently utilized None * Additional services required to return to the preadmission environment? No * Can the patient safely return to the preadmission environment? Yes * Has this patient been hospitalized within the prior 30 days at any hospital? Yes Coverage Notice Reviewer: [id number] Anastacio Camacho Notice Issued Date-Time: 02/17/2020 17:14 Notice Type: IM Discharge Notice Notice Delivered To: Family Member Relationship to Patient: Spouse Maintenance Director Name: Natasha Martinez Delivery Method: HAND - Hand Delivered Sophia Days: Prior Verbal Notification: Recipient Understood Notice: Yes Recipient Signature: Yes Med Rec Note Co-signed by Attending: Coverage Notice Comment: IMM explained, signed, given, copy placed in MR Last DP export: 02/17/20 4:19 Patient Name: INEZ MARTINEZ Page [id number] at 1727 All edits/amendments must be made on the electronic document DICTATION DATE: 02/17/201725 MULTIMEDIA INSTRUCTIONAL DESIGNER: OBI 02/17/201725 RPT#: [id number] DC DATE: STATUS: ADM IN [facility] [address] [place] [address] END OF REPORT
--- NOTE | 2020-02-17 17:43 | NUR ---
IV AND TELEMETRY DCD. DC PLANS GIVEN. UNDERSTANDING VOICED. ESCORTED TO CAR BY W/C.
--- NOTE | 2020-02-18 09:33 | MORECARE ---
CASE MANAGEMENT DISCHARGE SUMMARY PATIENT: INEZ MARTINEZ UNIT: [id number] ADM DATE: 02/14/20 AGE: 74 : 47 SEX: M ROOM/BED: D.7960 AUTHOR: JEFDOC PHYSICIAN: REFERRING PHYSICIAN: JORGE FUENTES MD DATE OF SERVICE: 02/18/20 Discharge Plan Patient Name: INEZ MARTINEZ Facility: [facility]:[place] : 1945 Planned Disposition: Home Anticipated Discharge Date: Discharge Date: 02/17/2020 Expected LOS: Initial Reviewer: [email or web address] Initial Review Date: 02/17/2020 Generated: 02/18/20 10:32 am Comments DCP- Discharge Planning Updated by [email or web address]: Yelitza Camacho on 02/17/20 4:[address] Patient Name: INEZ MARTINEZ Admission Status: ER Accout number: [id number] Admission Date: 02-14-2020 : 1945 Admission Diagnosis:SYNCOPE AND COLLAPSE Attending: JORGE FUENTES Current LOS: 3 Anticipated DC Date: Planned Disposition: Home Primary Insurance: MEDICARE A & B Discharge Planning Comments: CM met with patient to complete initial dc planning assessment. CM educated patient on the CM role and verbal consent given by patient to complete assessment. CM verified patient's address, phone number, and emergency contact phone numbers. Patient lives at with his spouse. At discharge patient plans to return and feels this is a safe discharge. CM discussed availability of home health, rehab services, and medical equipment. Patient denied known discharge needs at this time. Transportation provider at discharge will be his spouse, she is in the room. CM will continue to follow and will assist as needed with dc plans/needs. Glass Handler: Yelitza Camacho DCPIA - Discharge Planning Initial Assessment Updated by [email or web address]: Yelitza Camacho on 02/17/20 5:17 pm * Is the patient Alert and Oriented? Yes * How many steps to enter\exit or inside your home? 2/0 * PCP Dr. Fuentes * [facility]acy [facility] * Preadmission Environment Home with Family * ADLs Independent * Equipment None * List name and contact numbers for known caregivers / representatives who currently or will assist patient after discharge: Natasha Martinez - spouse - [phone] * Verbal permission to speak to the caregivers and representatives has been obtained from the patient. Yes * Community resources currently utilized None * Additional services required to return to the preadmission environment? No * Can the patient safely return to the preadmission environment? Yes * Has this patient been hospitalized within the prior 30 days at any hospital? Yes Coverage Notice Reviewer: [id number] Anastacio Camacho Notice Issued Date-Time: 02/17/2020 17:14 Notice Type: IM Discharge Notice Notice Delivered To: Family Member Relationship to Patient: Spouse Camp Boss Name: Natasha Martinez Delivery Method: HAND - Hand Delivered Sophia Days: Prior Verbal Notification: Recipient Understood Notice: Yes Recipient Signature: Yes Med Rec Note Co-signed by Attending: Coverage Notice Comment: IMM explained, signed, given, copy placed in MR Last DP export: 02/17/20 4:27 Patient Name: INEZ MARTINEZ Page [id number] at 0933 All edits/amendments must be made on the electronic document DICTATION DATE: 02/18/20931 DIGITAL IMAGING SPECIALIST: OBI 02/18/20931 RPT#: [id number] DC DATE:02/17/20 STATUS: DIS IN [facility] [address] [place] [address] END OF REPORT
== END 2020-02-17 17:43 | disposition home or self-care (01) | DRG 244 ==
LOC: D.ER 14:22 → D.EDHOLD 18:14 → D.M2 18:14
PROVIDERS: Family Medicine; Internal Medicine Interventional Cardiology; ADMIT Family Medicine; ATTEND Family Medicine
PROC: 02HK3JZ Insertion of Pacemaker Lead into Right Ventricle, Percutaneous Approach (ICD-10-PCS; 2020-02-17)
PROC: 02H63JZ Insertion of Pacemaker Lead into Right Atrium, Percutaneous Approach (ICD-10-PCS; 2020-02-17)
PROC: 0JH606Z Insertion of Pacemaker, Dual Chamber into Chest Subcutaneous Tissue and Fascia, Open Approach (ICD-10-PCS; principal; 2020-02-17 13:30)
DX: I49.5 Sick sinus syndrome (principal); I44.1 Atrioventricular block, second degree; I10 Essential (primary) hypertension; E11.9 Type 2 diabetes mellitus without complications; R55 Syncope and collapse; G89.29 Other chronic pain